=== PATIENT | male | born 1950 | race Caucasian/White ===

== ENCOUNTER 2018-06-07 11:20 | Emergency (ER) | payer OTHER ==
[2018-06-07 12:09] VITALS: BP 164/87; PULSE 80; TEMP 98; BMI 29.0
--- NOTE | 2018-06-07 13:43 | PDOC ---
History of Present Illness - General Chief Complaint: Rash Stated Complaint: LT SIDE RASH ALL OVER Time Seen by Provider: 06/07/18 13:05 - History of Present Illness Initial Comments: 06/07/18 13:39 67-year-old male presents for evaluation of rash on the left side of the back wrapping around to his face and left anterior chest times one week without systemic symptoms. He complains of itching without much associated pain Past History - Past Medical History Allergies/Adverse Reactions: Allergies Allergy/AdvReac Type Severity Reaction Status Date / Time Penicillins Allergy Verified 06/07/18 13:05 Home Medications: Ambulatory Orders Aspirin [ASA -] 81 mg PO DAILY 05/10/14 Losartan/Hydrochlorothiazide [Losartan-Hctz 50-12.5 mg Tab] 1 each PO DAILY 06/21 Metoprolol Succinate [Toprol XL -] 25 mg PO HS 05/10/14 Omeprazole [Prilosec (RX)] 40 mg PO DAILY 05/10/14 Simvastatin [Zocor -] 20 mg PO DAILY 05/10/14 Silodosin [Rapaflo] 8 mg PO HS 06/25/15 Furosemide 20 mg PO HS 11/19/15 Metronidazole 250 mg PO TID 11/19/15 Acyclovir [Zovirax -] 200 mg PO 5XD #50 capsule 06/07/18 Anemia: Yes Asthma: No Cancer: Yes (PROSTATE) Cardiac Disorders: Yes CVA: No COPD: No CHF: No Dementia: No Diabetes: No GI Disorders: Yes (MAYORGA'S ESOPHAGUS, CHRONIC GASTRITIS W/ INTESTINA METAPLASIA) Disorders: No HTN: Yes Hypercholesterolemia: Yes Liver Disease: No Seizures: No Thyroid Disease: No - Surgical History Abdominal Surgery: No Appendectomy: No Cardiac Surgery: Yes ([facility] 08/19) Cholecystectomy: No Lung Surgery: No Neurologic Surgery: No Orthopedic Surgery: No - Suicide/Smoking/Psychosocial Hx Smoking History: Never smoked Have you smoked in the past 12 months: No Number of Cigarettes Smoked Daily: 0 If you are a former smoker, when did you quit?: 1979 Information on smoking cessation initiated: No Hx Alcohol Use: No Drug/Substance Use Hx: No Substance Use Type: None, Alcohol Hx Substance Use Treatment: No Review of Systems - Review of Systems Integumentary: Yes: Pruritus, Rash *Physical Exam - Vital Signs Last Vital Signs Temp Pulse Resp BP Pulse Ox 98.0 F 80 18 164/87 98 06/07/18 12:03 06/07/18 12:03 06/07/18 12:03 06/07/18 12:03 06/07/18 12:03 - Physical Exam Comments: 06/07/18 13:39 HEAD: NC/AT EYES: Conjuntiva clear MS: Full ROM in all joints without edema NEUROLOGIC: No gross sensory or motor deficits, NVID SKIN: Normal color and temperature there is a vesicular rash on the posterior aspect of the neck and upper back on the left side wrapping around to the front of the face and left anterior chest without crossing midline. There are no open lesions one of the lesions on the left anterior chest has eschar no indication of secondary infection Medical Decision Making - Medical Decision Making 06/07/18 13:41 Acyclovir for shingles. I'll have patient follow-up with PCP as well as dermatology *DC/Admit/Observation/Transfer Diagnosis at time of Disposition: Shingles rash - Discharge Dispostion Disposition: HOME Condition at time of disposition: Stable Decision to Admit order: No - Prescriptions Prescriptions: Acyclovir [Zovirax -] 200 mg PO 5XD #50 capsule - Referrals Referrals: Geovani Resendez [Primary Care Provider] - Danita Renteria MD [Staff Physician] - - Patient Instructions Printed Discharge Instructions: Shingles, DI for Shingles Additional Instructions: Please take the antiviral medicine as directed. Return to the emergency room for worsening symptoms. Follow-up with dermatology as well as her primary care physician in one to 2 days for further evaluation and treatment options. - Post Discharge Activity
== END 2018-06-07 13:44 | disposition home or self-care (01) ==
LOC: JER 11:20 → JERFT 11:20
DX: B02.9 Zoster without complications (principal); I25.10 Atherosclerotic heart disease of native coronary artery without angina pectoris; I10 Essential (primary) hypertension; Z95.5 Presence of coronary angioplasty implant and graft; E78.00 Pure hypercholesterolemia, unspecified; Z87.19 Personal history of other diseases of the digestive system; Z86.2 Personal history of diseases of the blood and blood-forming organs and certain disorders involving the immune mechanism; Z85.46 Personal history of malignant neoplasm of prostate
CPT/HCPCS: 99281-25

== ENCOUNTER 2021-04-30 00:41 | Observation (INO) | payer OTHER ==
[2021-04-30] MEDS ORDERED: LABETALOL HCL 5 MG/1 ML (100MG/20 ML VIAL) IVPUSH ONE (01:20)
[2021-04-30] MEDS ORDERED: ACETAMINOPHEN 1000 MG/100 ML BAG IVPB ONE (01:20)
[2021-04-30] MEDS ORDERED: ACETAMINOPHEN INJECTION 100 ML IVPB ONE (01:52)
[2021-04-30 02:13] LABS: BASO % 0.7 % (0-2.0); EOS % 4.5 % (0-4.5); HEMATOCRIT 38.2 % (35.4-49); HEMOGLOBIN 12.6 GM/dL (11.7-16.9); LYMPH % 30.9 % (8-40); MCH 26.3 pg (25.7-33.7); MCHC 33.1 g/dl (32.0-35.9); MEAN CELL VOLUME 79.7 fl (80-96); MEAN PLT VOLUME 7.7 fl (7.5-11.1); MONO % 9.5 % (3.8-10.2); NEUT % 54.4 % (42.8-82.8); PLATELET COUNT 195 10^3/uL (134-434); RDW 14.6 % (11.9-15.9); WHITE BLOOD COUNT 7.2 K/mm3 (4.0-10.0)
[2021-04-30 02:25] LABS: PH,URINE 7.5 (5.0-8.0); URINE APPEARANCE CLEAR; URINE BILIRUBIN NEGATIVE (NEGATIVE); URINE COLOR YELLOW; URINE GLUCOSE (UA) NEGATIVE (NEGATIVE); URINE KETONE NEGATIVE (NEGATIVE); URINE LEUK ESTERASE NEGATIVE (NEGATIVE); URINE NITRITE NEGATIVE (NEGATIVE); URINE PROTEIN NEGATIVE (NEGATIVE); URINE UROBILINOGEN 0.2 mg/dL (0.2-1.0)
[2021-04-30 02:35] LABS: CALCIUM 9.4 mg/dL (8.5-10.1)
[2021-04-30 02:36] LABS: ALBUMIN 4.1 g/dl (3.4-5.0); BLOOD UREA NITROGEN 22.3 mg/dL (7-18)
[2021-04-30 02:39] LABS: CREATININE 1.1 mg/dL (0.55-1.3)
[2021-04-30 02:41] LABS: BILIRUBIN,TOTAL 0.4 mg/dL (0.2-1)
[2021-04-30] MEDS ORDERED: LOSARTAN POTASSIUM 50 MG TABLET ONE (08:21)
[2021-04-30] MEDS ORDERED: ENOXAPARIN NA (PORCINE) 40 MG/0.4 ML DISP.SYRIN SQ ONE (08:21)
[2021-04-30] MEDS ORDERED: CARVEDILOL 3.125 MG TABLET (FP) ONE ×2 (08:21→23:09)
[2021-04-30] MEDS ORDERED: amLODIPine BESYLATE 5 MG TABLET (FP) ONE (08:21)
[2021-04-30] MEDS ORDERED: PANTOPRAZOLE 40 MG TABLET ONE (08:21)
[2021-04-30 09:05] LABS: BASO % 0.7 % (0-2.0); EOS % 4.8 % (0-4.5); HEMATOCRIT 36.2 % (35.4-49); HEMOGLOBIN 12.4 GM/dL (11.7-16.9); LYMPH % 27.1 % (8-40); MCHC 34.3 g/dl (32.0-35.9); MEAN CELL VOLUME 78.6 fl (80-96); MEAN PLT VOLUME 7.9 fl (7.5-11.1); NEUT % 58.4 % (42.8-82.8); PLATELET COUNT 175 10^3/uL (134-434); RDW 14.6 % (11.9-15.9); WHITE BLOOD COUNT 6.6 K/mm3 (4.0-10.0)
[2021-04-30 09:26] LABS: CALCIUM 9.1 mg/dL (8.5-10.1)
[2021-04-30 09:27] LABS: ALBUMIN 3.8 g/dl (3.4-5.0); BLOOD UREA NITROGEN 17.5 mg/dL (7-18); MAGNESIUM 2.5 mg/dL (1.8-2.4)
[2021-04-30 09:30] LABS: CREATININE 0.9 mg/dL (0.55-1.3)
[2021-04-30 09:31] LABS: TOT PROT 7.3 g/dl (6.4-8.2)
[2021-04-30 09:32] LABS: BILIRUBIN,TOTAL 0.5 mg/dL (0.2-1)
[2021-04-30] MEDS: PANTOPRAZOLE 40 MG TABLET PO SCH (09:40)
[2021-04-30] MEDS: CARVEDILOL 6.25 MG TABLET (FP) PO SCH (09:40)
[2021-04-30] MEDS: ENOXAPARIN NA (PORCINE) 40 MG/0.4 ML DISP.SYRIN SQ SCH (09:40)
[2021-04-30] MEDS ORDERED: amLODIPine BESYLATE 5 MG TABLET (FP) PO SCH (10:00)
[2021-04-30] MEDS ORDERED: LOSARTAN POTASSIUM 50 MG TABLET PO SCH (10:00)
[2021-04-30] MEDS ORDERED: ROSUVASTATIN CA 20 MG TABLET PO SCH (22:00)
[2021-05-01] MEDS: CARVEDILOL 6.25 MG TABLET (FP) PO SCH ×2 (00:25→09:09)
[2021-05-01 00:57] VITALS: BMI 28.7
[2021-05-01 08:41] LABS: BASO % 0.7 % (0-2.0); EOS % 4.7 % (0-4.5); HEMATOCRIT 35.9 % (35.4-49); HEMOGLOBIN 11.7 GM/dL (11.7-16.9); LYMPH % 23.7 % (8-40); MCHC 32.6 g/dl (32.0-35.9); MEAN CELL VOLUME 79.7 fl (80-96); MEAN PLT VOLUME 8.4 fl (7.5-11.1); MONO % 7.8 % (3.8-10.2); NEUT % 63.1 % (42.8-82.8); PLATELET COUNT 184 10^3/uL (134-434); RBC 4.51 M/mm3 (4.00-5.60); RDW 14.4 % (11.9-15.9); WHITE BLOOD COUNT 6.4 K/mm3 (4.0-10.0)
[2021-05-01 08:54] LABS: ACTIVATED PTT 29.9 SECONDS (25.2-36.5); INR 1.01 (0.83-1.09); PROTHROMBIN TIME (PATIENT) 11.6 SEC (9.7-13.0)
[2021-05-01] MEDS: ENOXAPARIN NA (PORCINE) 40 MG/0.4 ML DISP.SYRIN SQ SCH (09:08)
[2021-05-01] MEDS: PANTOPRAZOLE 40 MG TABLET PO SCH (09:09)
[2021-05-01 09:11] LABS: ALBUMIN 3.6 g/dl (3.4-5.0); BLOOD UREA NITROGEN 18.9 mg/dL (7-18); CALCIUM 9.1 mg/dL (8.5-10.1); MAGNESIUM 2.3 mg/dL (1.8-2.4)
[2021-05-01 09:14] LABS: CREATININE 0.9 mg/dL (0.55-1.3); PHOSPHOROUS 4.3 mg/dL (2.5-4.9)
[2021-05-01 09:15] LABS: BILIRUBIN,TOTAL 0.6 mg/dL (0.2-1); TOT PROT 6.9 g/dl (6.4-8.2)
[2021-05-01 14:08] VITALS: BP 136/76; PULSE 62; TEMP 98.1
== END 2021-05-01 18:44 | disposition home or self-care (01) ==
LOC: JER 00:41 → JERBED 04:15 → J6S 23:37
PROVIDERS: ADMIT Hospitalist; ATTEND Internal Medicine
PROC: 3E033NZ Introduction of Analgesics, Hypnotics, Sedatives into Peripheral Vein, Percutaneous Approach (ICD-10-PCS; principal; 2021-04-30)
DX: I16.0 Hypertensive urgency (principal); I25.10 Atherosclerotic heart disease of native coronary artery without angina pectoris; E78.5 Hyperlipidemia, unspecified; K22.70 Barrett's esophagus without dysplasia; K21.9 Gastro-esophageal reflux disease without esophagitis; Z85.46 Personal history of malignant neoplasm of prostate; I11.9 Hypertensive heart disease without heart failure; D64.9 Anemia, unspecified; K29.50 Unspecified chronic gastritis without bleeding; Z95.5 Presence of coronary angioplasty implant and graft; Z87.891 Personal history of nicotine dependence
CPT/HCPCS: 36415; 70450-TC; 71046-TC-FY; 80053; 81003; 82550; 82728; 82962; 83540; 83550; 83735; 84100; 84484; 85025; 85610; 85730; 93005; 93010; 96374; 99285-25; C9803; G0378; U0003; U0005